=== PATIENT | female | born 1970 | race African-American/Black ===

== ENCOUNTER 2017-03-21 11:47 | Emergency (ER) | payer OTHER ==
--- NOTE | ~2017-03-21 | CT4 ---
[facility] A Service of [facility] RADIOLOGY TEXT RESULTS PATIENT: NEYMAR SHEIKH LOCATION: [facility] : 74 UNIT #: [id number] AGE: [address]: Rogerio Banegas DO SEX: F ORDER DR: [id number] [facility] [address] [place], [place] [address] [id number] E MR#: [id number] Acc #: [id number] NAME: NEYMAR SHEIKH : 1970 SEX: F STUDY DATE/TIME: 03/21/2017 15:44 UNIT: [facility] ROOM: STUDY DESCRIPTION: CT Abd and Pelv Wo Cont Attending Physician: Rogerio Banegas D.O. Ordering Physician: Rogerio Banegas D.O. Primary Care Physician: Amalia Bradley Aprn MEDICAL IMAGING REPORT This report is preliminary unless electronic signature is present EXAM CT abdomen and pelvis. DATE OF EXAM 03/21/2017 INDICATIONS Patient had a fall on a chair 2 days ago. Patient has back pain with inability to move for the last 2 days. TECHNIQUE Axial images were obtained through the abdomen and pelvis without contrast. Multiplanar reformats were obtained. COMPARISON Comparison made with 08/08/2016. This CT exam was performed with one or more of the following radiation dose reduction techniques: automatic exposure control, adjustment of mA and/or kV according to patient size, and iterative reconstruction. FINDINGS ABDOMEN: The lung bases are clear. Gallbladder is normal. No renal or ureteral stones are seen. No hydronephrosis. Bilateral renal gland enlargement is unchanged and presumably reflects hyperplasia. Unenhanced solid organs are otherwise normal. The unopacified GI tract is grossly normal. PELVIS: There are no lower ureteral stones. The bladder is normal. Solid pelvic organs are normal. There is sigmoid diverticulosis without evidence of diverticulitis. GI tract is otherwise unremarkable. There is no free fluid. No fractures are identified in the abdomen or pelvis. [facility] A Service of [facility] RADIOLOGY TEXT RESULTS PATIENT: NEYMAR SHEIKH LOCATION: [facility] : 74 UNIT #: [id number] AGE: [address]: Rogerio Banegas DO SEX: F ORDER DR: IMPRESSION 1. No acute findings in the abdomen and pelvis 2. No evidence of solid organ injury. No free fluid. 3. No renal or ureteral stones. No hydronephrosis. 4. Stable bilateral adrenal gland enlargement, presumably reflecting hyperplasia. 5. Mild sigmoid diverticulosis. Otherwise, negative noncontrast GI tract. Dictated by... John Hill Jr., M.D. THIS IS AN ELECTRONICALLY VERIFIED REPORT John Hlil Jr., M.D. at 03/22/2017 8:25 AM CALLIE/deven TD: 03/21/2017 18:17 JOB #: [id number] MEDICAL IMAGING REPORT Page 1 of 1 COPY
--- NOTE | ~2017-03-21 | CT71 ---
[facility] A Service of [facility] RADIOLOGY TEXT RESULTS PATIENT: NEYMAR SHEIKH LOCATION: [facility] : 74 UNIT #: [id number] AGE: [address]: Rogerio Banegas DO SEX: F ORDER DR: [id number] [facility] [address] [place], [place] [address] [id number] E MR#: [id number] Acc #: [id number] NAME: NEYMAR SHEIKH : 1970 SEX: F STUDY DATE/TIME: 03/21/2017 15:42 UNIT: [facility] ROOM: STUDY DESCRIPTION: CT Head Wo Contrast Attending Physician: Rogerio Banegas D.O. Ordering Physician: Rogerio Banegas D.O. Primary Care Physician: Amalia Bradley Aprn MEDICAL IMAGING REPORT This report is preliminary unless electronic signature is present EXAM CT head without contrast, 03/21/2017. HISTORY Fell out of chair 2 days ago. Back pain; unable to move for 2 days. Dizziness for [address] head performed, skull base through vertex, without administration of intravenous contrast. This CT exam was performed with one or more of the following radiation dose reduction techniques: automatic exposure control, adjustment of mA and/or kV according to patient size, and iterative reconstruction. COMPARISON 08/06/2015 FINDINGS The brain stem is unremarkable. Cerebellum and cerebral hemispheres show normal morales matter-white matter differentiation. No hemorrhage, no evidence of acute cortical ischemia. Midline structures are nondisplaced. Basal ganglia intact. Ventricles, cisterns, and sulci normal in size and contour. There are some scattered cavernous carotid arterial calcifications. No intra- or extraaxial mass effect and no abnormal intracranial fluid collection. Intraorbital soft tissues have an appearance suggesting bilateral proptosis. Similar appearance on prior study. Correlate with clinical examination. Prior repair of left orbital floor. Fixation plate and fixation screws visualized. Question old healed left medial orbital wall fracture. There is no evidence of acute bony abnormality. No traumatic extracranial soft tissue abnormality. The [facility] A Service of [facility] RADIOLOGY TEXT RESULTS PATIENT: NEYMAR SHEIKH LOCATION: [facility] : 74 UNIT #: [id number] AGE: [address]: Rogerio Banegas DO SEX: F ORDER DR: visualized paranasal sinuses and mastoid air cells are clear. No acute-appearing extracranial soft tissue abnormality. IMPRESSION 1. The brain appears normal. If patient has ongoing neurologic symptoms, consider follow-up imaging. 2. Appearance of the intraorbital soft tissues raises possibility of bilateral proptosis. Similar appearance on prior study from 2014. Correlate with exam. 3. Prior repair of left orbital floor with fixation plate and fixation screws. Correlate with history of trauma or intervention. Question old healed left medial orbital wall fracture. There is no acute-appearing bony abnormality. Dictated by... Brayan Greenwood M.D. THIS IS AN ELECTRONICALLY VERIFIED REPORT Brayan Greenwood M.D. at 03/23/2017 9:02 AM PARISA/kings TD: 03/21/2017 18:49 JOB #: [id number] MEDICAL IMAGING REPORT Page 1 of 1 COPY
[~2017-03-21 11:47] MED LIST: ACETAMINOPHEN PO; AL-MAG HYDROX-S30 M1 PO; ALBUTEROL17 GM INH; BACTRIM DS TABL1 TA1 PO; CELEXA; COZAAR PO; FLEXERIL10 MG PO; FOLIC ACID1 MG PO; IBUPROFEN800 MG PO; KEFLEX500 MG PO; LASIX PO; LASIX20 MG PO; MOBIC PO; MULTI-VITAMIN1 EAC1 PO; NORVASC10 MG PO; PERCOCET 7.5-31 EACH PO; PRILOSEC20 M1 PO; PROTONIX PO; SINGULAIR PO; THIAMINE HCL100 M1 PO; TOPAMAX50 MG PO; VICODIN 5/500 T1 TAB PO; ZOCOR20 MG PO
[2017-03-21 14:09] LABS: POC - CKMB <1.0 ng/mL (0.0-7.9); POC - TROPONIN <0.05 ng/mL (<=0.05)
[2017-03-21 14:11] LABS: BASOPHIL# 0.1 X10e3 (0-0.3); EOSINOPHIL# 0.1 X10e3 (0-0.7); EOSINOPHIL% 1.4 % (0.0-7.0); HEMOGLOBIN 13.5 gm/dL (12.0-16.0); LYMPHOCYTE# 2.4 X10e3 (1.0-3.5); LYMPHOCYTE% 39.8 % (17.0-45.0); MEAN CELL VOLUME 91.4 FL (83-96); MEAN CORPUSCULAR HEMOGLOBIN 29.3 PG (28-34); MEAN PLATELET VOLUME 7.4 FL (6.5-11.5); MONOCYTE# 0.5 X10e3 (0-1.0); MONOCYTE% 8.6 % (3.0-12.0); NEUTROPHIL% 49.2 % (40-75); PLATELET COUNT 269 X10e3 (140-420); RED CELL DISTRIBUTION WIDTH 14.4 % (11.0-15.5); WHITE BLOOD COUNT 6.1 X10e3 (4.0-10.5)
[2017-03-21 14:22] LABS: DIFF IND NO
[2017-03-21 14:28] LABS: PARTIAL THROMBOPLASTIN TIME 27.5 SECONDS (23.5-31.3)
[2017-03-21 14:29] LABS: URINE SOURCE CLEAN CATCH
[2017-03-21 14:36] LABS: URINE APPEARANCE CLOUDY; URINE BILIRUBIN NEG (NEG); URINE BLOOD NEG (NEG); URINE COLOR YELLOW; URINE GLUCOSE NEG (NEG); URINE KETONE NEG (NEG); URINE LEUKOCYTE ESTERASE NEG (NEG); URINE NITRATE NEG (NEG); URINE PH 5.5 (5-8); URINE PROTEIN NEG (NEG); URINE SPECIFIC GRAVITY 1.022 (1.003-1.035); URINE UROBILINOGEN 0.2 MG/DL (NEG)
[2017-03-21 14:40] LABS: ALBUMIN SERUM 3.6 g/dL (3.5-5.0); BILIRUBIN, DIRECT 0.1 mg/dL (0.0-0.2); BILIRUBIN,INDIRECT 0.3 mg/dL (0.0-0.9); BILIRUBIN,TOTAL 0.4 mg/dL (0.2-2.0); BUN/CREATININE RATIO 16.25; CALCIUM SERUM 8.8 mg/dL (8.4-10.2); CREATININE SERUM 0.8 mg/dL (0.6-1.4); MAGNESIUM 1.8 mg/dL (1.6-3.0); POTASSIUM 4.1 mmol/L (3.5-5.1); PROTEIN TOTAL SERUM 6.7 g/dL (6.0-8.3)
[2017-03-21 14:46] LABS: CULTURE INDICATED? NO
[2017-03-21 14:47] LABS: AMPHETAMINE NEG (NEG); BARBITURATES NEG (NEG); BENZODIAZEPINES NEG (NEG); COCAINE NEG (NEG); MARIJUANA POS (NEG); OPIATES NEG (NEG); TRICYCLIC ANTIDEPRESSANTS POS (NEG); U METHADONE NEG (NEG)
[2017-03-21 15:49] LABS: POC - CKMB <1.0 ng/mL (0.0-7.9); POC - TROPONIN <0.05 ng/mL (<=0.05)
== END 2017-03-21 18:13 | disposition home or self-care (01) ==
LOC: CED 11:47
PROVIDERS: Emergency Medicine
DX: M54.5 Low back pain (principal); H66.90 Otitis media, unspecified, unspecified ear; F17.200 Nicotine dependence, unspecified, uncomplicated; W07.XXXA Fall from chair, initial encounter
CPT/HCPCS: 36415; 70450; 74176; 80048; 80076; 80307; 81003; 82553; 83735; 84484; 84703; 85025; 85610; 85730; 96374; 96375; 99284; J2270; J2405

== ENCOUNTER 2017-06-22 18:45 | Emergency (ER) | payer OTHER ==
[~2017-06-22] VITALS: Ht 149.9 cm; Wt 113.8 kg
--- NOTE | ~2017-06-22 | CT52 ---
[facility] A Service [facility] RADIOLOGY TEXT RESULTS PATIENT: NEYMAR SHEIKH LOCATION: [facility] : 74 UNIT #: [id number] AGE: [address]: Jayro Estes MD SEX: F ORDER DR: [id number] [facility] [address] [place], [place] [address] [id number] E MR#: [id number] Acc #: [id number] NAME: NEYMAR SHEIKH : 1970 SEX: F STUDY DATE/TIME: 06/22/2017 22:08 UNIT: [facility] ROOM: STUDY DESCRIPTION: CT Cervical Spine Wo Cont Attending Physician: Rishabh Estes M.D. Ordering Physician: Dario Ellis M.D. Primary Care Physician: Amalia Bradley Aprn MEDICAL IMAGING REPORT This report is preliminary unless electronic signature is present EXAM Cervical spine CT no contrast, 06/22/2017. PROCEDURE Axial unenhanced cervical spine CT with multiplanar reformats. This CT exam was performed with one or more of the following radiation dose reduction techniques: automatic exposure control, adjustment of mA and/or kV according to patient size, and iterative reconstruction. COMPARISON None. CLINICAL HISTORY Left side neck pain since this morning. No known injury. FINDINGS There is mild mid-cervical degenerative change and slight loss and even reversal of lordosis, but there is no fracture or bone erosion or destruction or lolis or retrolisthesis. There is calcification at the level of the atlantodental joint in the region of the upper tendons of the longus colli muscle and findings may represent acute calcific tendinitis of the longus colli. IMPRESSION There is no fracture or canal stenosis, but calcification in the region of the atlantodental joint. It is fairly typical of acute calcific tendinitis of the longus colli, which can represent as an acute neck pain syndrome. Exam is otherwise unremarkable. Dictated by... Shaggy Farrell M.D. [facility] A Service [facility] RADIOLOGY TEXT RESULTS PATIENT: NEYMAR SHEIKH LOCATION: [facility] : 74 UNIT #: [id number] AGE: [address]: Jayro Estes MD SEX: F ORDER DR: THIS IS AN ELECTRONICALLY VERIFIED REPORT Shaggy Farrell M.D. at 06/30/2017 4:55 PM TEV/pc TD: 06/23/2017 08:22 JOB #: [id number] MEDICAL IMAGING REPORT Page 1 of 1 COPY
== END 2017-06-23 00:39 | disposition home or self-care (01) ==
LOC: CED 18:45
DX: M43.6 Torticollis (principal); J44.9 Chronic obstructive pulmonary disease, unspecified; I10 Essential (primary) hypertension; F32.9 Major depressive disorder, single episode, unspecified; F17.210 Nicotine dependence, cigarettes, uncomplicated
CPT/HCPCS: 72125; 96372; 99284; J1885; J3360

== ENCOUNTER 2017-06-25 11:52 | Emergency (ER) | payer OTHER ==
[~2017-06-25] VITALS: Ht 149.9 cm; Wt 113.8 kg
--- NOTE | ~2017-06-25 | CT71 ---
[facility] A Service of [facility] RADIOLOGY TEXT RESULTS PATIENT: NEYMAR SHEIKH LOCATION: [facility] : 74 UNIT #: [id number] AGE: [address]: Jasmin Middleton SEX: F ORDER DR: [id number] [facility] [address] [place], [place] [address] [id number] E MR#: [id number] Acc #: [id number] NAME: NEYMAR SHEIKH : 1970 SEX: F STUDY DATE/TIME: 06/25/2017 13:31 UNIT: [facility] ROOM: STUDY DESCRIPTION: CT Head Wo Contrast Attending Physician: Jasmin Middleton P.A.-C. Ordering Physician: Jasmin Middleton P.A.-C. Primary Care Physician: Amalia Bradley Aprn MEDICAL IMAGING REPORT This report is preliminary unless electronic signature is present EXAM Head CT without HISTORY Neck pain for days with posterior head pain, slight bilateral ear pain, seen on 06/22 for the same. History of hypertension. COMMENT Routine noncontrast head CT is reviewed. Comparison study is from 03/21/2017. This CT exam was performed with one or more of the following radiation dose reduction techniques: automatic exposure control, adjustment of mA and/or kV according to patient size, and iterative reconstruction. There is prior surgery to the left orbital floor. Partly included in the field of view. There is some deformity of the medial orbital wall on the left and I suspect old fracture of the medial orbital wall on the right. No acute abnormality is suspected and there is no air-fluid level in the visualized paranasal sinuses. The mastoid air cells are clear. There is no evidence for acute intracranial hemorrhage or extra-axial fluid collection. The ventricles are normal in size and configuration. The morales-white junction is well-maintained. No acute cortical infarct is suspected. IMPRESSION 1. Negative noncontrast head CT. 2. Evidence of prior trauma to the paranasal sinuses/orbits. Partly demonstrated. [facility] A Service of [facility] RADIOLOGY TEXT RESULTS PATIENT: NEYMAR SHEIKH LOCATION: [facility] : 74 UNIT #: [id number] AGE: [address]: Jasmin Middleton SEX: F ORDER DR: Dictated by... Evelia Gordon M.D. THIS IS AN ELECTRONICALLY VERIFIED REPORT Evelia Gordon M.D. at 06/26/2017 4:54 PM MASOUD/aniya TD: 06/26/2017 04:31 JOB #: [id number] MEDICAL IMAGING REPORT Page 1 of 1 COPY
[2017-06-25 13:39] LABS: BASOPHIL# 0.1 X10e3 (0-0.3); BASOPHIL% 0.7 % (0-2.5); EOSINOPHIL% 0.4 % (0.0-7.0); HEMATOCRIT 41.5 % (35.0-45.0); HEMOGLOBIN 13.7 gm/dL (12.0-16.0); LYMPHOCYTE# 2.4 X10e3 (1.0-3.5); LYMPHOCYTE% 24.1 % (17.0-45.0); MEAN CELL VOLUME 89.4 FL (83-96); MEAN CORPUSCULAR HEMOGLOBIN 29.6 PG (28-34); MEAN CORPUSCULAR HGB CONC 33.1 g/dL (30-36); MEAN PLATELET VOLUME 7.3 FL (6.5-11.5); MONOCYTE# 1.2 X10e3 (0-1.0); MONOCYTE% 11.8 % (3.0-12.0); NEUTROPHIL# 6.2 X10e3 (1.5-7.1); PLATELET COUNT 311 X10e3 (140-420); RED BLOOD COUNT 4.64 X10e (3.90-5.30); RED CELL DISTRIBUTION WIDTH 13.9 % (11.0-15.5); WHITE BLOOD COUNT 9.9 X10e3 (4.0-10.5)
[2017-06-25 13:44] LABS: DIFF IND NO
[2017-06-25 13:53] LABS: BUN/CREATININE RATIO 18.75; CALCIUM SERUM 8.8 mg/dL (8.4-10.2); CREATININE SERUM 0.8 mg/dL (0.6-1.4); POTASSIUM 4.1 mmol/L (3.5-5.1)
== END 2017-06-25 15:50 | disposition home or self-care (01) ==
LOC: CFTX 11:52 → CED 11:52 → CFTX 12:23
PROVIDERS: Physician Assistant
DX: J02.0 Streptococcal pharyngitis (principal); M54.2 Cervicalgia; I10 Essential (primary) hypertension; J45.909 Unspecified asthma, uncomplicated; Z98.51 Tubal ligation status; K58.9 Irritable bowel syndrome, unspecified
CPT/HCPCS: 36415; 70450; 80048; 85025; 87880; 96372; 96374; 96375; 99284; J0561; J1100; J1885